=== PATIENT | male | born 1960 | race Caucasian/White ===

== ENCOUNTER 2016-06-10 21:08 | Emergency (ER) | payer MEDICAID ==
[~2016-06-10] VITALS: Ht 167.6 cm; Wt 102.1 kg
[2016-06-10] MEDS ORDERED: BACTRIM DS TAB1 EAC1 ORAL (22:20)
[2016-06-10] MEDS ORDERED: KEFLEX500 MG ORAL (22:20)
[2016-06-10 22:30] VITALS: BP 145/72
[2016-06-10] MEDS ORDERED: TdaP Vaccine 0.5ml Syr IM ONE (22:30)
--- NOTE | 2016-06-10 22:30 | Emergency Room Report ---
History of Present Illness General Chief Complaint: Puncture Wound Source: Patient Present Illness HPI 55 YO M with left thumb pain/swelling since cutting it with electric saw at work 4 days ago. Patient is right handed. Cut across dorsal aspect of proximal phalanx. Denies fever/chills, systemic symptoms. Diabetic. Denies pus drainage from site. Not applying ice or taking any OTC meds. Unknown last tetanus. Allergies: Coded Allergies: PENICILLINS (Unverified Allergy, Unknown, 06/10/16) Uncoded Allergies: PENICILLIN (Allergy, Unknown, 06/10/16) Patient History Past Medical History: DM, HTN Past Surgical History: none Pertinent Family History: none Social History: Denies: alcohol use, drug use, smoking Immunizations: other - not up to date with tetanus Reviewed Nursing Documentation: PMH: Agreed, PSxH: Agreed Nursing Documentation-PMH Past Medical History: No Stated History Hx Hypertension: Yes Hx Diabetes: Yes Review of Systems All Other Systems: negative except mentioned in HPI Physical Exam Vital Signs Date Time Temp Pulse Resp B/P Pulse Ox O2 Delivery O2 Flow Rate FiO2 06/10/16 21:43 98.2 76 18 156/78 95 Room Air Sp02 EP Interpretation: reviewed, normal General Appearance: normal inspection, well appearing, no apparent distress, alert, GCS 15, non-toxic Head: normocephalic, atraumatic Eyes: bilateral eye EOMI, bilateral eye PERRL ENT: normal ENT inspection, hearing grossly normal, normal voice Neck: normal inspection, full range of motion, supple, no bony tend Respiratory: normal inspection, lungs clear, normal breath sounds, no respiratory distress, no retraction, no wheezing Cardiovascular #1: regular rate, rhythm, no edema Gastrointestinal: normal inspection, normal bowel sounds, non tender, soft, no guarding, no hernia Genitourinary: no CVA tenderness Musculoskeletal: other - left thumb: 1cm cut across dorsal aspect; healing well. Diffuse swelling. No erythema. No pus drainage. Mild ttp at site of cut. 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 VSS. Afebrile. No systemic symptoms to warrant lab/imaging for osteo/ sepsis. Will double cover with Abx given DM history Tetanus updated in ED DC home Advised to return to ER for worsening symptoms Last Vital Signs Date Time Temp Pulse Resp B/P Pulse Ox O2 Delivery O2 Flow Rate FiO2 06/10/16 21:43 98.2 76 18 156/78 95 Room Air Status: improved Disposition: HOME, SELF-CARE Condition: Improved Scripts Trimethoprim/Sulfamethoxazole 160/800* (BACTRIM DS TABLET*) 1 Each Tablet 1 TAB ORAL Q12H for 7 Days, #14 TAB 0 Refills Prov: HELENE ARREGUIN M.D. 06/10/16 Cephalexin* (KEFLEX*) 500 Mg Capsule 500 MG ORAL Q6H for 7 Days, #28 CAP 0 Refills Prov: HELENE ARREGUIN M.D. 06/10/16 Patient Instructions: Cellulitis, [id number]-[id number] Additional Instructions: - Take ALL antibiotics until finished - Return to ER for worsening pain/swelling or fever/chills after 2-3 days of taking antibiotic without seeing an improvement HELENE ARREGUIN M.D. Jun 10, 2016 22:30
== END 2016-06-10 22:30 | disposition home or self-care (01) ==
LOC: EMR 22:07
DX: L03.012 Cellulitis of left finger (principal); Z23 Encounter for immunization; E11.9 Type 2 diabetes mellitus without complications; I10 Essential (primary) hypertension; Z88.0 Allergy status to penicillin
CPT/HCPCS: 90471; 90715; 99284